=== PATIENT | male | born 1940 | race Caucasian/White ===

== ENCOUNTER 2018-04-12 18:27 | Emergency (ER) | payer MEDICARE, OTHER ==
[~2018-04-12] VITALS: Ht 180.3 cm; Wt 104.3 kg
[~2018-04-12 18:27] MED LIST: ANCEF1 GM IM; ASPIRIN81 M1 PO; AVODART0.5 MG PO; CARVEDILOL12.5 MG ORAL; COREG12.5 MG PO; CRESTOR10 M1 ORAL; DIOVAN320 MG PO; EFFIENT10 MG PO; ESTER-C 1,0001 EACH PO; FAMOTIDINE20 MG ORAL; FLOMAX0.4 MG PO; GARLIC1 EACH PO; GLUCOPHAGE850 MG PO; GLUCOTROL5 MG ORAL; GYMNEMA SYLVESTR1 GM ORAL; IMDUR30 MG ORAL; LASIX20 M1 ORAL; LEVEMIR100 UNIT/1 SUBQ; LIPITOR20 MG ORAL; METFORMIN HCL1000 M1 ORAL; NITROSTAT0.4 M2 SL; NORCO 5-325 TA1 EAC1 ORAL; NORVASC10 MG ORAL; OLIVE LEAF EXT250 MG PO; PLAVIX75 MG PO; PROSCAR5 MG ORAL; RESTORIL30 MG ORAL; STARLIX120 MG PO; TYLENOL650 MG/20. ORAL; UBIQUINOL100 MG PO; VITAMIN D34000 UNIT PO; ZANTAC150 MG ORAL; [UNRECOGNIZED DRUG - OTHER] ORAL; [UNRECOGNIZED DRUG - OTHER] ORAL; [UNRECOGNIZED DRUG - OTHER] ORAL
[2018-04-12 18:33] VITALS: BP 133/57
[2018-04-12 18:57] LABS: BASOPHILS % (AUTO) 0.8 % (0.0-2.0); EOSINOPHILS % (AUTO) 0.2 % (0.0-3.0); HEMATOCRIT 41.1 % (42.0-52.0); HEMOGLOBIN 13.7 G/DL (14.2-18.0); LYMPHOCYTES % (AUTO) 9.1 % (20.0-45.0); MEAN CORPUSCULAR VOLUME 80 FL (80-99); MONOCYTES % (AUTO) 6.2 % (1.0-10.0); NEUTROPHILS % (AUTO) 83.6 % (45.0-75.0); PLATELET COUNT 161 K/UL (150-450); RED BLOOD COUNT 5.11 M/UL (4.70-6.10); RED CELL DISTRIBUTION WIDTH 13.7 % (11.6-14.8); WHITE BLOOD COUNT 10.5 K/UL (4.8-10.8)
[2018-04-12 19:08] LABS: INR 0.9 (0.9-1.1)
[2018-04-12 19:09] LABS: ANION GAP 13 mmol/L (5-15); BLOOD UREA NITROGEN 26 mg/dL (7-18); CALCIUM 9.5 MG/DL (8.5-10.1); CARBON DIOXIDE 23 MMOL/L (21-32); CHLORIDE 103 MMOL/L (98-107); CREATININE 1.7 MG/DL (0.55-1.30); POTASSIUM 4.1 MMOL/L (3.5-5.1); SODIUM 139 MMOL/L (136-145)
[2018-04-12 19:23] LABS: ALANINE AMINOTRANSFERASE 27 U/L (12-78); ALBUMIN 3.4 G/DL (3.4-5.0); ALBUMIN/GLOBULIN RATIO 0.9 (1.0-2.7); ALKALINE PHOSPHATASE 79 U/L (46-116); ASPARTATE AMINO TRANSFERASE 22 U/L (15-37); BILIRUBIN,TOTAL 0.6 MG/DL (0.2-1.0); CKMB 3.9 NG/ML (0.0-3.6); CREATINE KINASE 109 U/L (26-308)
[2018-04-12 19:32] LABS: APPEARANCE,URINE CLEAR; BILIRUBIN, URINE NEGATIVE (NEGATIVE); COLOR,URINE PALE YELLOW; GLUCOSE, URINE (UA) 4+ (NEGATIVE); KETONES,URINE NEGATIVE (NEGATIVE); LEUKOCYTE ESTERASE ,URINE NEGATIVE (NEGATIVE); NITRITE,URINE NEGATIVE (NEGATIVE); PH,URINE 5 (4.5-8.0); PROTEIN,URINE 2+ (NEGATIVE); UROBILINOGEN,URINE NORMAL MG/DL (0.0-1.0)
--- NOTE | 2018-04-12 20:48 | Emergency Room Report ---
History of Present Illness General Chief Complaint: Chest Pain Source: Patient Present Illness HPI This patient states that he is homeless. He states that he has a history of chronic angina. He also has diabetes that is poorly controlled. He states that he cannot be on insulin because he is homeless and cannot refrigerate the insulin. He has recently increased his doses of metformin. He presents today because he had been having major issues with [employer] and the movement of his belongings. He states that he has an issue with anger and anxiety. He states that the person I [employer] was trying to agitate him and was being inflexible. He states that during the episode of anger he was feeling chest pain. He states that he took his own nitroglycerin. He states this is very common for him. He has no pain at this time. He has no other complaints. Allergies: Coded Allergies: TICLOPIDINE (Verified Allergy, Severe, rash, 02/03/14) GATIFLOXACIN (Unverified Allergy, Unknown, 04/12/18) Patient History Past Medical History: see triage record, DM, HTN, OK, CAD, CHF, GERD, CVA/TIA Past Surgical History: CABG, other - Cervical spinal surgeries Social History: Reports: alcohol use; Denies: smoking, drug use Reviewed Nursing Documentation: PMH: Agreed; PSxH: Agreed Nursing Documentation-PMH Hx Cardiac Problems: Yes - angina chf Hx Hypertension: Yes Hx Pacemaker: Yes Hx Asthma: No Hx COPD: Yes Hx Diabetes: Yes Hx Cancer: No Hx Gastrointestinal Problems: No Hx Neurological Problems: Yes Hx Cerebrovascular Accident: Yes Hx Transient Ischemic Attacks: Yes Hx Peripheral Neuropathy: Yes Hx Vertigo: Yes Hx Headaches: Yes Hx Numbness: Yes - bilateral HANDs and legs NUMBNESS Review of Systems All Other Systems: negative except mentioned in HPI Physical Exam Vital Signs Date Time Temp Pulse Resp B/P (MAP) Pulse Ox O2 Delivery O2 Flow Rate FiO2 04/12/18 18:23 98.8 88 20 133/76 98 Room Air 98.8 Sp02 EP Interpretation: reviewed, normal General Appearance: no apparent distress, alert, GCS 15, non-toxic Head: normocephalic, atraumatic Eyes: bilateral eye normal inspection, bilateral eye PERRL ENT: hearing grossly normal, normal pharynx, no angioedema, normal voice Respiratory: chest non-tender, lungs clear, normal breath sounds, no respiratory distress, no retraction, no accessory muscle use, speaking full sentences Cardiovascular #1: regular rate, rhythm, no edema Gastrointestinal: normal bowel sounds, non tender, soft, non-distended, no guarding, no rebound Rectal: deferred Musculoskeletal: normal range of motion Neurologic: alert, oriented x3, responsive, motor strength/tone normal, sensory intact, speech normal Psychiatric: judgement/insight normal, memory normal, mood/affect normal, no suicidal/homicidal ideation Skin: normal color, no rash, warm/dry, well hydrated Medical Decision Making Diagnostic Impression: Primary Impression: Poorly controlled diabetes mellitus Additional Impression: Stable angina ER Course Patient presents with chest pain after a situation where he was very upset with a [employer] employee. He states that he has this often and this is typical for him. This is his typical angina. He knows that his blood sugar has been poorly controlled. He did recently go up on his metformin and other oral medications. He is in the process of obtaining approval for insulin. I offered this patient subcutaneous insulin. He declined at this time. He demanded to leave after his workup was completed. He was educated on the dangers of uncontrolled and poorly controlled diabetes. He is educated on diet , exercise and compliance with his oral medications. He is also educated on the importance of close follow-up with his primary care physician and primary clinic at the [facility]. The patient wants no further treatment here in the emergency department. Overall, the patient is well-appearing. He is discharged with instructions on close follow-up. He indicated understanding. Laboratory Tests Test 04/12/18 18:40 04/12/18 19:00 White Blood Count 10.5 K/UL (4.8-10.8) Red Blood Count 5.11 M/UL (4.70-6.10) Hemoglobin 13.7 G/DL (14.2-18.0) L Hematocrit 41.1 % (42.0-52.0) L Mean Corpuscular Volume 80 FL (80-99) Mean Corpuscular Hemoglobin 26.9 PG (27.0-31.0) L Mean Corpuscular Hemoglobin Concent 33.4 G/DL (32.0-36.0) Red Cell Distribution Width 13.7 % (11.6-14.8) Platelet Count 161 K/UL (150-450) Mean Platelet Volume 7.6 FL (6.5-10.1) Neutrophils (%) (Auto) 83.6 % (45.0-75.0) H Lymphocytes (%) (Auto) 9.1 % (20.0-45.0) L Monocytes (%) (Auto) 6.2 % (1.0-10.0) Eosinophils (%) (Auto) 0.2 % (0.0-3.0) Basophils (%) (Auto) 0.8 % (0.0-2.0) Prothrombin Time 9.8 SEC (9.30-11.50) Prothrombin Time INR 0.9 (0.9-1.1) PTT 25 SEC (23-33) Sodium Level 139 MMOL/L (136-145) Potassium Level 4.1 MMOL/L (3.5-5.1) Chloride Level 103 MMOL/L (98-107) Carbon Dioxide Level 23 MMOL/L (21-32) Anion Gap 13 mmol/L (5-15) Blood Urea Nitrogen 26 mg/dL (7-18) H Creatinine 1.7 MG/DL (0.55-1.30) H Estimate Glomerular Filtration Rate mL/min (>60) Glucose Level 336 MG/DL (74-106) H Calcium Level 9.5 MG/DL (8.5-10.1) Total Bilirubin 0.6 MG/DL (0.2-1.0) Aspartate Amino Transferase (AST) 22 U/L (15-37) Alanine Aminotransferase (ALT) 27 U/L (12-78) Alkaline Phosphatase 79 U/L (46-116) Total Creatine Kinase 109 U/L (26-308) Creatine Kinase MB 3.9 NG/ML (0.0-3.6) H Creatine Kinase MB Relative Index 3.5 Troponin I 0.000 ng/mL (0.000-0.056) Pro-B-Type Natriuretic Peptide 318 pg/mL (0-125) H Total Protein 7.4 G/DL (6.4-8.2) Albumin 3.4 G/DL (3.4-5.0) Globulin 4.0 g/dL Albumin/Globulin Ratio 0.9 (1.0-2.7) L Urine Color Pale yellow Urine Appearance Clear Urine pH 5 (4.5-8.0) Urine Specific Caspian 1.015 (1.005-1.035) Urine Protein 2+ (NEGATIVE) H Urine Glucose (UA) 4+ (NEGATIVE) H Urine Ketones Negative (NEGATIVE) Urine Occult Blood 1+ (NEGATIVE) H Urine Nitrite Negative (NEGATIVE) Urine Bilirubin Negative (NEGATIVE) Urine Urobilinogen Normal MG/DL (0.0-1.0) Urine Leukocyte Esterase Negative (NEGATIVE) Urine RBC 2-4 /HPF (0 - 0) H Urine WBC 0-2 /HPF (0 - 0) Urine Squamous Epithelial Cells None /LPF (NONE/OCC) Urine Bacteria Few /HPF (NONE) Urine Opiates Screen Negative (NEGATIVE) Urine Barbiturates Screen Negative (NEGATIVE) Phencyclidine (PCP) Screen Negative (NEGATIVE) Urine Amphetamines Screen Negative (NEGATIVE) Urine Benzodiazepines Screen Negative (NEGATIVE) Urine Cocaine Screen Negative (NEGATIVE) Urine Marijuana (THC) Screen Negative (NEGATIVE) EKG Diagnostic Results Rate: normal Rhythm: NSR ST Segments: other - NSST Rhythm Strip Diag. Results EP Interpretation: yes Rate: 80's Rhythm: NSR, no PVC's, no ectopy Chest X-Ray Diagnostic Results Chest X-Ray Diagnostic Results : Chest X-Ray Ordered: Yes # of Views/Limited/Complete: 1 View Indication: Chest Pain EP Interpretation: Yes Interpretation: no consolidation, no effusion, no pneumothorax, no acute cardiopulmonary disease Impression: No acute disease Electronically Signed by: Krupa Last Vital Signs Date Time Temp Pulse Resp B/P (MAP) Pulse Ox O2 Delivery O2 Flow Rate FiO2 04/12/18 18:33 81 23 Room Air 04/12/18 18:33 98.8 133/57 97 98.8 Status: improved Disposition: HOME, SELF-CARE Condition: Improved Referrals: NOT CHOSEN IPA/,REFERRING (PCP) Patient Instructions: Nonspecific Chest Pain HAFSA MAYES D.O. Apr 12, 2018 20:48
[2018-04-12 20:50] VITALS: BP 136/77
--- NOTE | 2018-04-13 10:31 | Diagnostic Imaging Report ---
Indication: Chest pain Technique: One view of the chest Comparison: For 11/28/2013 Findings: Scarring is seen in the right upper lung. Again demonstrated are median sternotomy sutures. There is central bronchial wall thickening, mild. Lungs and pleural spaces are otherwise clear. The heart size is normal. Surgical hardware is seen in the neck. No significant interim change Impression: No acute process
--- NOTE | 2018-04-13 13:51 | Cardiology Report ---
APPROVED REPORT EKG Measurement Heart [id number] ID [id number] Normal sinus rhythm Abnormal QRS-T angle, consider primary T wave abnormality Abnormal ECG
== END 2018-04-12 20:50 | disposition home or self-care (01) ==
LOC: EDBD 18:27 → EMR 18:59
DX: I20.9 Angina pectoris, unspecified (principal); E11.42 Type 2 diabetes mellitus with diabetic polyneuropathy; Z59.0 Homelessness; Z95.0 Presence of cardiac pacemaker; J44.9 Chronic obstructive pulmonary disease, unspecified; Z86.73 Personal history of transient ischemic attack (TIA), and cerebral infarction without residual deficits; I11.0 Hypertensive heart disease with heart failure; I50.9 Heart failure, unspecified; K21.9 Gastro-esophageal reflux disease without esophagitis; I25.2 Old myocardial infarction; Z95.1 Presence of aortocoronary bypass graft; Z88.8 Allergy status to other drugs, medicaments and biological substances; Z79.84 Long term (current) use of oral hypoglycemic drugs
CPT/HCPCS: 36415; 71045; 80053; 80307; 81003; 82550; 82553; 83880; 84484; 85025; 85610; 85730; 93005; 99283